=== PATIENT | female | born 1950 | race Caucasian/White ===

== ENCOUNTER 2020-03-14 20:16 | Inpatient (IN) | payer MEDICARE, MEDICAID, OTHER ==
[~2020-03-14 20:16] MED LIST: Iopamidol-370 76% 500 ML 1 ML ONE
[2020-03-14] MEDS ORDERED: Vancomycin 1 GM/200 ML BAG ONE (20:36)
[2020-03-14] MEDS ORDERED: Cefepime 2 GM VIAL ONE (20:36)
[2020-03-14] MEDS ORDERED: Norepinephrine 8 MG/0.9% NS 250 ML ONE (20:48)
[2020-03-14 20:57] LABS: Hemoglobin 6.5 g/dL (12.0-16.0); Mean Corpuscular HGB CONC 30.6 g/dL (32.0-36.0); Mean Corpuscular Volume 68.7 fL (78.0-98.0); Platelet Count 411 thou/uL (130-400); RBC Distribution Width 18.5 % (11.5-14.5); Red Blood Cell (RBC) Count 3.07 mill/uL (4.20-5.40); White Blood Cell (WBC) Count 4.1 thou/uL (4.8-10.8)
[2020-03-14 21:01] LABS: INR-International Normal Ratio 1.4; PTT 28.2 sec (22.9-36.1); Prothrombin Time 17.4 sec (12.0-14.7)
[2020-03-14 21:10] LABS: ALT (SGPT) 8 U/L (8-55); AST (SGOT) 36 U/L (5-34); Albumin 2.1 g/dL (3.4-4.8); Alkaline Phosphatase 56 U/L (40-110); Anion Gap 16 mmol/L (10-20); BUN (Urea Nitrogen) 33 mg/dL (9.8-20.1); CK (CPK) 998 U/L (29-168); Calc. Creatinine Clearance 0 mL/min (70-130); Calcium 6.5 mg/dL (7.8-10.44); Carbon Dioxide 20 mmol/L (23-31); Chloride 98 mmol/L (98-107); Estimated GFR-MDRD 73; Glucose 101 mg/dL (80-115); Lipase 9 U/L (8-78); Potassium 3.7 mmol/L (3.5-5.1); Protein, Total 4.1 g/dL (6.0-8.3); Sodium 130 mmol/L (136-145)
[2020-03-14 21:14] LABS: Bacteria/HPF None Seen HPF (None Seen); Bilirubin Negative (Negative); Blood, Urine 1+ (Negative); Clarity Turbid (Clear); Glucose, Urine (Dipstick) Normal (Negative); Ketone, Urine Negative (Negative); Leukocyte 25 Leu/uL (Negative); Nitrite Negative (Negative); Protein, Urine (Dipstick) 50 mg/dL (Neg-Trace); RBC/HPF 0-3 HPF (0-3); Specific Gravity, Urine 1.022 (1.002-1.036); Squamous Epithelial 0-3 HPF (0-3); Urobilinogen Normal mg/dL (Less than 2); pH, Urine 5.5 (5.0-9.0)
[2020-03-14 21:20] LABS: Anisocytosis SLIGHT = 6-15 cells (100X) (0-5/hpf); Band 20 % (5-11); Elliptocytes SLIGHT = 2-5 cells (100X) (0-1/hpf); Hypochromia SLIGHT = 6-15 cells (100X) (0-5/hpf); Lymphocytes 7 % (21-51); MDiff Complete? YES; Metamyelocyte 1 % (0-0); Microcytosis SLIGHT = 6-15 cells (100X) (0-5/hpf); Monocytes 3 % (0-10); Neutrophil 69 % (42-75); Poikilocytosis MODERATE=16-30 cells (100X) (0-5/hpf); Schistocytes SLIGHT = 2-5 cells (100X) (0-1/hpf)
--- NOTE | 2020-03-14 21:43 | RAD ---
RADIOGRAPH CHEST 1 VIEW: DATE: 03/14/2020 HISTORY: 69-year-old female with cough FINDINGS: There is cardiomegaly. There is no evidence of airspace density, pulmonary edema, or pneumothorax. Th e lateral costophrenic angles are not effaced. IMPRESSION: 1) No acute pulmonary findings. 2) cardiomegaly without congestive heart failure.
[2020-03-14] MEDS ORDERED: Fentanyl 100 MCG/2 ML VIAL ONE ×2 (21:56→23:10)
--- NOTE | 2020-03-14 22:15 | CT ---
CT pelvis with contrast: 03/14/2020 9:33 PM HISTORY: 69-year-old female with "pelvic trauma" Dr. Calvin discussed the findings and recommendation by telephone with Dr. Donnelly at 10:04 PM 03/14/2020 FINDINGS: Within the peritoneal cavity centered at midline, there is an abnormal loop of bowel, perhaps a ptoti c component of transverse colon, with severe mural thickening and mural edema, and surrounding mesenteric edema. Inseparable from this, there is mural edema involving other bowel loops more inferiorly. There is diffuse mural edema of a collapsed rectosigmoid colon. There is no fracture, dislocation, high-grade DJD, or destructive osseous lesion involving the pelvis . There is diffuse osteopenia. There is a large amount of gas throughout the subcutaneous fat superficial and posterior to the right gluteal musculature. The right gluteus juanita is thickened compared to the left. This gas is also present in the right paramedian gluteal fat. All of this is associated with fat stranding consistent with edema. There is a small amount of subcutaneous emphysema related to the entry site of a left central venous catheter entering the common femoral vein, with distal tip near junction between left external iliac and common iliac veins. IMPRESSION: 1.) Severe mural edema and adjacent mesenteric edema involving abnormal bowel loops in the lower abdo jaylon cavity, incompletely imaged. Recommend CT of abdomen and pelvis. 2) large amount of subcutaneous emphysema in the superficial fat around the right gluteal musculature and medial to the right gluteal fold, associated with edema. This could be due to penetrating trauma or could represent necrotizing fasciitis.
[2020-03-14] MEDS ORDERED: Vasopressin 20 UNIT, Admixture Fee 1 EACH in Sodium Chloride 0.9% 50 ML IV SCH (23:00)
--- NOTE | 2020-03-14 23:26 | CT ---
CT ABDOMEN WITH CONTRAST CT PELVIS WITH CONTRAST: DATE: 03/14/2020 HISTORY: 69-year-old female with abnormal bowel visualized on pelvic CT earlier today. Dr. Calvin discussed the findings by telephone with Dr. Donnelly at 11:23 PM 03/14/2020 COMPARISON: None TECHNIQUE: IV injection of iodinated contrast media: administered. Oral contrast media:Not administered FINDINGS: There is an approximately 12 x 6.9 cm collection of gas and very irregular fluid or soft tissue densi ty material, which appears to be in the lumen of an abnormally distended viscus which has irregular, diffuse mural thickening. There are adjacent loops of bowel with mural thickening and mura l edema inseparable from this mass. This mass is surrounded by extensive mesenteric edema. Elsewhere, there are no other dilated bowel loops. Difficult to rule in or rule out mild pancreatitis. No pancreatic mass identified. Unremarkable kidneys, liver, and spleen, and urinary bladder. No free intraperitoneal air. Herniation of much of the stomach into the chest, incompletely visualized. Large volume of subcutaneous emphysema in the right gluteal region as described in the report of the pelvic CT. IMPRESSION: 1) Large collection of gas and other intraluminal material centrally within the peritoneal cavity pro bably representing a very abnormal loop of bowel (a necrotic segment of colon?) versus extraluminal collection, inseparable from multiple other edematous bowel loops. Surrounded by mesenteric edema. Re commend general surgical consultation. 2) moderately large hiatal hernia 3) severe subcutaneous emphysema in the right buttock which could represent necrotizing fasciitis.
[2020-03-14] MEDS ORDERED: Clindamycin/D5W 900 mg/50 ml Premix Bag ONE (23:43)
[2020-03-15] MEDS ORDERED: Fentanyl 100 MCG/2 ML VIAL ONE (00:22)
[2020-03-15] MEDS ORDERED: Phenylephrine 10 MG/ML VIAL ONE (00:23)
[2020-03-15] MEDS ORDERED: EPINEPHrine 1 MG/ML AMP ONE (00:23)
[2020-03-15] MEDS ORDERED: Norepinephrine 4 MG/4 ML VIAL ONE (00:23)
[2020-03-15] MEDS ORDERED: Sodium Bicarb 50 MEQ/50 ML VIAL ONE ×2 (00:59→01:02)
[2020-03-15] MEDS ORDERED: Norepinephrine 8 MG/0.9% NS 250 ML IVPB SCH (01:15)
[2020-03-15] MEDS ORDERED: Midazolam HCl 2 mg/2 ml Vial ONE (02:28)
[2020-03-15] MEDS ORDERED: HumaLOG 300 UNITS/3 ML VIAL SC PRN (02:51)
[2020-03-15] MEDS ORDERED: Dextrose 50% Abboject 50 ML SYRINGE SLOW IVP PRN (02:51)
[2020-03-15] MEDS ORDERED: Dextrose 5% in Water 1,000 ML IV PRN (02:51)
[2020-03-15] MEDS ORDERED: Ondansetron PF 4 MG/2 ML Vial IVP PRN (02:51)
[2020-03-15] MEDS ORDERED: hydrALAZINE 20 MG/ML VIAL SLOW IVP PRN (02:51)
[2020-03-15 02:55] LABS: Actual Bicarbonate (HCO3a) 19.6 mEq/L (22-28); Base Excess (BEa) -6.4 mEq/L (-2.0 to +3.0); CO2 Tension 41.6 mmHg (35.0-45.0); Calcium, Ionized (arterial) 0.94 mmol/L (1.12-1.30); Carboxyhemoglobin (COHb) 2.3 gm% (0.0-3.0); Hemoglobin (Hb) 7.2 g/dL (12.0-16.0); O2 Tension (PaO2), arterial 85.4 mmHg (> 80.0); Potassium - ABG Lab 3.22 mmol/L (3.70-5.30); pH, Arterial 7.29 (7.35-7.45)
[2020-03-15 03:00] LABS: Puncture Site LINE
[2020-03-15] MEDS ORDERED: Sodium Chloride 0.9% 1,000 ML IV SCH ×2 (03:00→08:15)
[2020-03-15] MEDS: Norepinephrine 8 MG/0.9% NS 250 ML IVPB SCH ×6 (03:00→22:13)
--- NOTE | 2020-03-15 03:13 | OP ---
DATE OF PROCEDURE: 03/15/2020 PREOPERATIVE DIAGNOSIS: Peritonitis, necrotizing fasciitis to right buttock. POSTOPERATIVE DIAGNOSIS: Right colon mass, perforated necrotizing infection to perineum and right buttock. PROCEDURES PERFORMED: 1. Exploratory laparotomy, right colectomy with end ileostomy. 2. Small-bowel resection anastomosis. 3. Wide local debridement of skin, subcutaneous tissue, fat and fascia and muscle to right buttock and perineum. ANESTHESIA: General. BLOOD LOSS: None. COMPLICATIONS: None. FINDINGS: Appears to be a perforated right colon or cecal tumor with fistulizing in the area of the localized small bowel resection and a right colectomy was performed. Extensive bulla formation and crepitance to the right buttock and perineum with blisters. All the skin, subcutaneous fat, fascia, muscle was debrided. DESCRIPTION OF PROCEDURE: The patient was taken to the operating room and laid supine on the operating room table. After general anesthetic was obtained, a Matthews was placed. Patient was placed supine and prepped and draped in a sterile fashion. A midline incision was made. Bookwalter retractor was placed. The patient had an inflammatory mass in the right abdomen dissecting the small bowel off. There was purulent material and free perforation that was localized. A KAROLINE-75 was fired across the terminal ileum. A reload was fired across the transverse colon. The right colon mesentery was taken using the Impact LigaSure. The small bowel segment in the area of the more proximal ileum was fused to this area. There was a fistula from the colon to the intestine, so this area of small-bowel was removed as well. A znby-ro-rngs anastomosis of small intestine using KAROLINE 75 stapler was then performed. The common enterotomy was closed using a TA 60. There was no bleeding in the abdomen, it was irrigated using multiple liters of warm sterile saline. Ellipse of skin taken out in the right abdomen and a cruciate incision was made in the fascia and the terminal ileum was brought up as the ileostomy sewn to the skin using 3-0 Vicryl. This was performed after the fascia was closed. All instrument counts, needle counts, lap counts were correct. The fascia was closed using #1 PDS from the top and the bottom and tied in the middle. Subcutaneous tissues were irrigated and packed using wet-to-dry saline soaked gauze. Next, the patient was placed in left lateral decubitus position. The skin over her entire abdomen and right perineum around her vagina was all removed sharply, skin, subcutaneous fat, some of the fascia, some of the muscle. Most of the muscle was viable. This was all removed. The wound irrigated. Cultures were taken and the wound packed using wet-to-dry saline soaked gauze. The patient is en route to the ICU in critical condition. All instrument counts, needle counts, lap counts were correct. Job ID: [id number]
[2020-03-15] MEDS ORDERED: Propofol BOLUS 1,000 MG/100 ML VIAL IV PRN (03:30)
[2020-03-15] MEDS ORDERED: Fentanyl BOLUS 250 ML IVPB PRN (03:30)
[2020-03-15] MEDS ORDERED: Morphine 2 MG/ML VIAL SLOW IVP PRN (03:30)
[2020-03-15] MEDS ORDERED: Meropenem 2 GM in Sodium Chloride 0.9% 100 ML IVPB SCH (03:30)
[2020-03-15] MEDS ORDERED: Lorazepam 2 MG/ML VIAL SLOW IVP PRN (03:30)
[2020-03-15] MEDS ORDERED: Propofol 1,000 MG/100 ML VIAL IV PRN (03:30)
[2020-03-15] MEDS ORDERED: DISCONTINUE PREVIOUS NARCOTIC PAIN MEDICATIONS AND BENZODIAZEPINES FS SCH (03:30)
[2020-03-15] MEDS ORDERED: fentaNYL Citrate/PF 2,000 MCG in Sodium Chloride 0.9% 60 ML IV SCH (03:30)
[2020-03-15 03:39] VITALS: BMI 24.3
[2020-03-15] MEDS: Vasopressin 20 UNIT, Admixture Fee 1 EACH in Sodium Chloride 0.9% 50 ML IV SCH ×3 (05:13→21:02)
[2020-03-15 05:16] LABS: Anion Gap 18 mmol/L (10-20); BUN (Urea Nitrogen) 24 mg/dL (9.8-20.1); Calc. Creatinine Clearance 92 mL/min (70-130); Calcium 6.2 mg/dL (7.8-10.44); Carbon Dioxide 17 mmol/L (23-31); Chloride 105 mmol/L (98-107); Estimated GFR-MDRD Greater than 90; Glucose 114 mg/dL (80-115); Potassium 3.6 mmol/L (3.5-5.1); Sodium 136 mmol/L (136-145)
[2020-03-15 05:30] VITALS: TEMP 98.6
[2020-03-15 05:43] LABS: Hemoglobin 7.4 g/dL (12.0-16.0); Mean Corpuscular HGB CONC 29.4 g/dL (32.0-36.0); Mean Corpuscular Hemoglobin 20.4 pg (27.0-31.0); Mean Corpuscular Volume 69.6 fL (78.0-98.0); Mean Platelet Volume 9.9 fL (7.4-10.4); Platelet Count 418 thou/uL (130-400); RBC Distribution Width 19.3 % (11.5-14.5); Red Blood Cell (RBC) Count 3.61 mill/uL (4.20-5.40); White Blood Cell (WBC) Count 2.2 thou/uL (4.8-10.8)
[2020-03-15] MEDS: Phenylephrine 40 MG in Sodium Chloride 0.9% 250 ML 250 ML IVPB SCH ×6 (05:59→23:56)
[2020-03-15 06:13] LABS: Anisocytosis SLIGHT = 6-15 cells (100X) (0-5/hpf); Band 51 % (5-11); Burr Cells SLIGHT = 2-5 cells (100X) (0-1/hpf); Elliptocytes SLIGHT = 2-5 cells (100X) (0-1/hpf); Hypochromia SLIGHT = 6-15 cells (100X) (0-5/hpf); Lymphocytes 21 % (21-51); MDiff Complete? YES; Metamyelocyte 5 % (0-0); Microcytosis SLIGHT = 6-15 cells (100X) (0-5/hpf); Monocytes 1 % (0-10); Neutrophil 22 % (42-75); Poikilocytosis MODERATE=16-30 cells (100X) (0-5/hpf); Schistocytes SLIGHT = 2-5 cells (100X) (0-1/hpf)
--- NOTE | 2020-03-15 06:23 | HP ---
CHIEF COMPLAINT: Sepsis. HISTORY OF PRESENT ILLNESS: This is a 69-year-old female, with a history of bipolar, schizophrenia, who is a resident of [facility], sent over with hip pain and hip bruising, found to be septic. Further workup revealed on CT, extensive air in the soft tissues of her right hip. CT of the abdomen showed inflammatory mass, likely ischemic area in the abdomen. The patient had peritonitis. She was in septic shock. A central line was placed by Dr. Donnelly. She was started on pressors. She is a [employer]ism, so she cannot have blood products. Her hemoglobin was 6. She complains of [id number] abdominal pain, but more severe pain in her right buttock. PAST MEDICAL HISTORY: Includes hypercholesterolemia, bipolar, and schizophrenia. SURGICAL HISTORY: She denies. MEDICATIONS: Taken daily, see list. ALLERGIES: PENICILLIN, LEVAQUIN, AND CODEINE. SOCIAL HISTORY: No smoking, alcohol, or other drugs. REVIEW OF SYSTEMS: 10 systems review of systems otherwise negative. PHYSICAL EXAMINATION: VITAL SIGNS: Blood pressure is 98/60, her pulse is 133, respirations 12, and she is afebrile. CHEST: Clear. HEART: Regular rate. ABDOMEN: Soft. Diffusely mildly tender. She has a mass in her right abdomen that is tender. EXTREMITIES: Examination of her skin reveals extensive redness and subcutaneous crepitus to the right buttock. She has blister and bulla formation to the right buttock going up into the perineum around her right labia majora. DIAGNOSTIC STUDIES: CT scan as above. ASSESSMENT: 1. Necrotizing infection to the perineum and right buttock, likely caused by an ischemic event with perforation in the abdomen. 2. Bipolar, schizophrenia. 3. Mormonism with low hemoglobin, but does not consent to blood. PLAN: She will need exploratory laparotomy and extensive debridement. She understands that she will likely be on the ventilator tonight. This was also discussed with her family the high mortality associated with this type infection. The patient and family both have firm beliefs on no blood for her due to her Mormonism and this will be respected. They understand that may shorten her life or make her treatment difficult at a later time. We will have the pattern checker see her as well postop. Job ID: [id number]
[2020-03-15 07:40] LABS: Actual Bicarbonate (HCO3a) 15.1 mEq/L (22-28); Base Excess (BEa) -9.8 mEq/L (-2.0 to +3.0); CO2 Tension 29.3 mmHg (35.0-45.0); Calcium, Ionized (arterial) 0.95 mmol/L (1.12-1.30); Carboxyhemoglobin (COHb) 2.6 gm% (0.0-3.0); Hemoglobin (Hb) 7.5 g/dL (12.0-16.0); Potassium - ABG Lab 3.39 mmol/L (3.70-5.30); pH, Arterial 7.33 (7.35-7.45)
[2020-03-15] MEDS ORDERED: Vancomycin 1 GM in Premix Bag 1 BAG IVPB SCH (09:00)
[2020-03-15] MEDS: Vancomycin 1 GM in Premix Bag 1 BAG IVPB SCH ×2 (09:01→20:38)
[2020-03-15] MEDS: Famotidine/PF 20 mg/2ml Vial SLOW IVP SCH ×2 (09:01→20:28)
[2020-03-15 09:02] LABS: Puncture Site ALINE
[2020-03-15 09:03] LABS: ALV-art Gradient 113.575 mmHg (0-20)
--- NOTE | 2020-03-15 09:33 | RAD ---
CHEST 1 VIEW: INDICATION: History of intubation. COMPARISON: Prior study dated 03/14/2020. FINDINGS: The patient has been intubated. The ET tube tip is seen 4 cm above the level of the raul. There i s a gastric catheter projecting below the left hemidiaphragm below the field of view. There is incre asing subsegmental volume loss in the region of the lingula. A component of aspiration cannot be ent irely excluded. There is slight elevation of the left hemidiaphragm. Chronic lung change affecting the right lung is stable. NO pneumothorax is evident. IMPRESSION: 1. Worsening opacity of the left lower lobe with elevation of the left hemidiaphragm is more suspici ous for subsegmental volume; however, an area of aspiration could not be entirely excluded. Recommen d continued radiographic followup. 2. Interval intubation with gastric catheter placement. POS: BH
[2020-03-15] MEDS: Hydrocortisone Sod Succ/PF 100 mg/2 ml Vial IVP SCH ×3 (09:50→20:56)
[2020-03-15] MEDS: Sodium Bicarbonate 150 MEQ in Dextrose 5% in Water 1,000 ML IV SCH ×2 (09:52→16:57)
[2020-03-15] MEDS: Sodium Chloride 0.9% 1,000 ML IV SCH ×2 (10:44→12:55)
[2020-03-15] MEDS ORDERED: Sodium Chloride 0.9% 2,000 ML IV SCH (10:45)
[2020-03-15] MEDS ORDERED: Rocuronium Bromide 10 MG/ML (10ML VIAL) ONE (11:37)
[2020-03-15] MEDS ORDERED: Succinylcholine Chloride 20 MG/ML 10 ml SYRINGE FS ONE (11:37)
[2020-03-15] MEDS ORDERED: Lidocaine 1% PF 5 ML VIAL ONE (11:37)
[2020-03-15 12:00] LABS: SARS-CoV-2 MS2 Positive; SARS-CoV-2 N Gene Negative; SARS-CoV-2 S Gene Negative; SARS-CoV-2 by NAA Not Detected (NotDetected); SARS-CoV-2 orf1ab Negative
[2020-03-15] MEDS: Meropenem 2 GM in Sodium Chloride 0.9% 100 ML IVPB SCH ×2 (12:36→21:02)
--- NOTE | 2020-03-15 14:56 | CON ---
DATE OF CONSULTATION: 03/15/2020 CONSULTING PHYSICIAN: Erasmo Cornell MD REASON FOR CONSULTATION: Acute respiratory failure and sepsis. HISTORY OF PRESENT ILLNESS: This is a 69-year-old female from [facility], who came in with necrotizing fasciitis of the right buttock area as well as inflammatory mass, ischemic area in the abdomen. She was on vasopressors when she arrived. She was intubated for acute respiratory failure. She was taken to the OR for debridement and exploratory laparotomy. Significant findings included necrotizing fasciitis of the right buttock area, perforated, infection of the perineum, and a right colon mass. She had a small-bowel resection and anastomosis. She had a right colectomy with an end-ileostomy. She was brought back to the ICU intubated, on multiple vasopressors including phenylephrine, vasopressin, and norepinephrine. She is currently awake. Also, she is a Jehovah witness and refuses any blood products. PAST MEDICAL HISTORY: 1. Schizophrenia. 2. Hyperlipidemia. 3. Bipolar disorder. PAST SURGICAL HISTORY: Unremarkable. ALLERGIES: PENICILLIN, LEVAQUIN, AND CODEINE. SOCIAL HISTORY: Nonsmoker. Does not consume alcohol. Does not use significant drugs. MEDICATIONS: Prior to admission, none have been listed so far. Current inpatient medications reviewed, see chart. REVIEW OF SYSTEMS: Cannot be obtained because she is intubated. Of note, she is DNAR. PHYSICAL EXAMINATION: VITAL SIGNS: Temperature 99.9, pulse 141, blood pressure 81/52 via a questionable left radial line as far as function. HEENT: Unremarkable except for pale oral mucous membranes. NECK: No adenopathy or JVD. LUNGS: Clear. CARDIAC: S1 and S2, tachycardic. ABDOMEN: Soft, slightly tender in left quadrant. She has had a right lower quadrant ileostomy. EXTREMITIES: She has redness along the right buttock area below an open wound extending down her right thigh posteriorly. She has no edema. LABORATORY DATA: Sodium 136, potassium 3.6, chloride 105, CO2 of 17, BUN 24, creatinine 0.6, glucose 114, calcium 6.2. Lactate 3.6. PH of 7.29, pCO2 of 41, pO2 of 85 on SIMV rate 14, tidal volume 500, PEEP 5, pressure support 10, FiO2 of 40%. INR 1.4. White blood cell count 2.2, hematocrit 25.1, and platelet count 418. ASSESSMENT: 1. Necrotizing fasciitis. 2. Inflammatory abdominal mass. 3. Acute respiratory failure requiring mechanical ventilation. 4. Septic shock. PLAN: The patient has been placed on meropenem and vancomycin. She will be kept on multiple vasopressors. I will add stress dose steroids. She will continue mechanical ventilation. I will switch her to IV fluids with bicarbonate. Her prognosis is extremely poor for functional recovery. TOTAL TIME SPENT: 45 minutes. Job ID: [id number]
[2020-03-16] MEDS: Sodium Bicarbonate 150 MEQ in Dextrose 5% in Water 1,000 ML IV SCH (00:31)
[2020-03-16] MEDS: Hydrocortisone Sod Succ/PF 100 mg/2 ml Vial IVP SCH (04:38)
[2020-03-16] MEDS: Norepinephrine 8 MG/0.9% NS 250 ML IVPB SCH ×2 (04:38→06:40)
[2020-03-16] MEDS: Meropenem 2 GM in Sodium Chloride 0.9% 100 ML IVPB SCH (05:06)
[2020-03-16 05:55] LABS: ALT (SGPT) 262 U/L (8-55); AST (SGOT) 1740 U/L (5-34); Albumin 1.4 g/dL (3.4-4.8); Alkaline Phosphatase 70 U/L (40-110); Anion Gap 28 mmol/L (10-20); BUN (Urea Nitrogen) 23 mg/dL (9.8-20.1); Bilirubin, Total 1.1 mg/dL (0.2-1.2); Calc. Creatinine Clearance 55 mL/min (70-130); Calcium 5.4 mg/dL (7.8-10.44); Carbon Dioxide 8 mmol/L (23-31); Chloride 108 mmol/L (98-107); Estimated GFR-MDRD 53; Globulin 1.9 g/dL (2.4-3.5); Glucose 127 mg/dL (80-115); Potassium 4.4 mmol/L (3.5-5.1); Protein, Total 3.3 g/dL (6.0-8.3); Sodium 140 mmol/L (136-145)
[2020-03-16 06:34] LABS: Hemoglobin 6.8 g/dL (12.0-16.0); Mean Corpuscular HGB CONC 27.4 g/dL (32.0-36.0); Mean Corpuscular Hemoglobin 20.1 pg (27.0-31.0); Mean Corpuscular Volume 73.3 fL (78.0-98.0); Platelet Count 252 thou/uL (130-400); RBC Distribution Width 21.1 % (11.5-14.5); Red Blood Cell (RBC) Count 3.38 mill/uL (4.20-5.40); White Blood Cell (WBC) Count 14.6 thou/uL (4.8-10.8)
[2020-03-16] MEDS: Phenylephrine 40 MG in Sodium Chloride 0.9% 250 ML 250 ML IVPB SCH (06:36)
[2020-03-16 06:40] LABS: Band 43 % (5-11); Burr Cells MODERATE= 6-15 cells (100X) (0-1/hpf); Elliptocytes SLIGHT = 2-5 cells (100X) (0-1/hpf); Eosinophils 3 % (0-10); Lymphocytes 14 % (21-51); MDiff Complete? YES; Metamyelocyte 2 % (0-0); Monocytes 11 % (0-10); Myelocyte 4 % (0-0); Neutrophil 23 % (42-75); Poikilocytosis MODERATE=16-30 cells (100X) (0-5/hpf); Target Cells SLIGHT = 2-5 cells (100X) (0-1/hpf)
[2020-03-16 07:42] VITALS: BP 53/39
--- NOTE | 2020-03-16 08:37 | PRG ---
DATE OF SERVICE: 03/16/2020 SUBJECTIVE: The patient remains intubated on mechanical ventilation. She is doing very poorly. She is far less responsive today than she was yesterday. OBJECTIVE: VITAL SIGNS: Temperature 100.2, pulse 140, blood pressure 50/36. She is currently on norepinephrine drip, phenylephrine drip, and vasopressin. HEENT: Poor pallor. NECK: No JVD. LUNGS: Coarse breath sounds. CARDIAC: S1, S2, regular. ABDOMEN: Ileostomy noted. EXTREMITIES: Necrotizing fasciitis down the posterior right leg. LABORATORY DATA: White blood cell count 14.6, hematocrit 24.8, and platelet count 252. Sodium 140, potassium 4.4, chloride 108, CO2 of 8, BUN 23, creatinine 1.0, and glucose 127. ASSESSMENT: 1. Septic shock. 2. Necrotizing fasciitis. 3. Inflammatory abdominal mass. 4. Acute respiratory failure, requiring mechanical ventilation. PLAN: This case is not salvageable. The patient's family understands that and they plan on withdrawing care later today. I will write orders to facilitate that. Job ID: [id number]
--- NOTE | 2020-03-16 10:00 | PRG ---
DATE OF SERVICE: 03/16/2020 Ms. Olivares remains in septic shock. She is on significantly high pressor level. She continues to ooze from her open wounds and has progression of her cellulitis to the buttock and right lower extremity. She is nonresponsive now. Family has been informed and plans are going to be more for palliative care. The patient's mortality from this illness associated with ischemic colon would be significantly above 90%. Job ID: [id number]
--- NOTE | 2020-03-18 23:06 | PQF ---
CLINICAL DOCUMENTATION CLARIFICATION FORM: Dear : Tamir Cornell MD Date / Time: 03/18/2020 Please exercise your independent, professional judgment in responding to the clarification form. 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 Margins, positive for invasive carcinoma 2] Metastatic carcinoma involving 3 out of 25 nodes(3/25) Please check appropriate box(es): [ ] Agree w the pathology finding of: adenocarcinoma of small bowel,right colon and metastatic carcinoma involving 3 nodes [ ] Other explanation of pathology findings (please specify) [ ] Other diagnosis (Please specify if any) [ ] Unable to determine Physician Signature: Date/Time: For continuity of documentation, please document condition throughout progress notes and discharge summary. Thank You. To be completed by CDI/Coding staff for physician review: Present Clinical Indicators - Signs / Symptoms / Labs Results and Location in Medical Record [ x ] Right colectomy and segment of small bowel resection: invasive adenocarcinoma, poortly differentiated PTH Surgical specimen on 03/15 [x ] Margins positive of invasive carcinoma PTH Surgical specimen on 03/15 [ x ] Metastatic carcinoma involving 3 out of 25 nodes (3/2) PTH Surgical specimen on 03/15 [x ] Necotising fascitis Consult on 03/15 Present Risk Factors Results and Location in Medical Record [x ] Inflammatory abdominal mass Consult on 03/15 [ ] [ ] [ ] Present Treatments Results and Location in Medical Record [ x ] Exploratory laparotomy, right colectomy with end ileostomy OP note on 03/15 [ ] [ ] [ ] CDS/Manager Laundry Signature: PHILIP Phone #: Date/Time: 03/18/2020 This is a permanent part of the Medical Record [facility]
--- NOTE | 2020-03-24 16:54 | EKG ---
Test Reason : Blood Pressure : / mmHG Vent. Rate : 130 BPM Atrial Rate : 130 BPM P-R Int : 128 ms QRS Dur : 086 ms QT Int : 378 ms P-R-T Axes : 084 094 081 degrees QTc Int : 556 ms Sinus tachycardia with Premature atrial complexes with Abberant conduction Rightward axis Nonspecific ST and T wave abnormality Abnormal ECG Confirmed by KURT FREY, PARMINDER ([id number]), photography editor DARWIN PACHECO ([id number]) on 03/24/2020 4:53:40 PM Referred By: Confirmed By:PARMINDER HICKS MD
== END 2020-03-16 08:51 | disposition expired | DRG 853 ==
LOC: ERS 20:16 → CCU 03-15 02:22
PROVIDERS: ADMIT Surgery; ATTEND Surgery
PROC: 0DB80ZZ Excision of Small Intestine, Open Approach (ICD-10-PCS; principal; 2020-03-15)
PROC: 0KBM0ZZ Excision of Perineum Muscle, Open Approach (ICD-10-PCS; 2020-03-15)
PROC: 0DTF0ZZ Resection of Right Large Intestine, Open Approach (ICD-10-PCS; 2020-03-15)
PROC: 0BH17EZ Insertion of Endotracheal Airway into Trachea, Via Natural or Artificial Opening (ICD-10-PCS; 2020-03-15)
PROC: 5A1945Z Respiratory Ventilation, 24-96 Consecutive Hours (ICD-10-PCS; 2020-03-15)
DX: A41.9 Sepsis, unspecified organism (principal); K65.9 Peritonitis, unspecified; R65.21 Severe sepsis with septic shock; J96.00 Acute respiratory failure, unspecified whether with hypoxia or hypercapnia; M72.6 Necrotizing fasciitis; L03.317 Cellulitis of buttock; L03.115 Cellulitis of right lower limb; F31.9 Bipolar disorder, unspecified; E78.00 Pure hypercholesterolemia, unspecified; F20.9 Schizophrenia, unspecified; Z88.0 Allergy status to penicillin; Z88.6 Allergy status to analgesic agent; Z79.899 Other long term (current) drug therapy; Z20.828 Contact with and (suspected) exposure to other viral communicable diseases
CPT/HCPCS: 36415; 36416; 36556; 51702; 71045; 72193; 74177; 80048; 80053; 81003; 81015; 82550; 82805; 83605; 83690; 83880; 84484; 85025; 85610; 85730; 86850; 86900; 86901; 87040; 87070; 87076; 87149; 87205; 87635; 88309; 93005; 94002; 94003; 96365; 96366; 96368; 96375; 96376; 99292; J0171; J0692; J1720; J2185; J2250; J2370; J3010; J3370; J3490; J7050; J7070; Q9967; S0028; U0003